=== PATIENT | female | born 1960 | race Caucasian/White ===

== ENCOUNTER 2020-05-02 17:53 | Outpatient (REF) | payer OTHER, SELFPAY ==
[2020-05-05 21:24] LABS: COVID-19 RT-PCR Result NEGATIVE (Negative)
== END 2020-05-02 18:13 ==
LOC: LBN 17:53
PROVIDERS: Visit Provider Nurse Practitioner Family
DX: J02.9 Acute pharyngitis, unspecified (principal)
CPT/HCPCS: U0003

== ENCOUNTER 2020-05-09 02:43 | Outpatient (CLI) | payer OTHER, SELFPAY ==
[2020-05-09 12:12] LABS: Abs Immature Grans 0.02 10^3/uL (0.0-0.06); Absolute Basophil Count 0.02 10^3/uL (0.0-0.2); Absolute Eosinophil Count 0.05 10^3/uL (0.0-0.7); Absolute Lymphocyte Count 1.65 10^3/uL (1.2-3.4); Absolute Monocyte Count 0.44 10^3/uL (0.1-0.8); Absolute Neutrophil Count 2.72 10^3/uL (1.2-6.7); Basophils % 0.4; HCT 43.5 % (36.0-46.0); HGB 14.4 g/dL (11.2-15.7); Immature Grans % 0.4; Lymphocytes % 33.7; MCH 28.2 pg (27.0-33.0); MCHC 33.1 % (32.0-36.0); MCV 85.3 fL (80-95); MPV 9.5 fL (8.0-11.0); Neutrophils % 55.5; Nucleated RBC 0 %; Platelet Count 234 10^3/uL (130-400); RDW 13.1 % (11.7-14.6); RDW-SD 40.4 fL
[2020-05-09 13:44] LABS: ALT 22 U/L (14-59); AST 15 U/L (15-37); Albumin 4.1 g/dL (3.4-5.0); Alkaline Phosphatase 92 U/L (46-116); Anion Gap 9.6 mmol/L (3-11); BUN 15 mg/dL (7-18); Bilirubin, Total 0.8 mg/dL (0.2-1.0); CO2 26.4 mmol/L (21.0-32.0); CREATININE 0.66 mg/dL (0.55-1.02); Calcium 9.3 mg/dL (8.5-10.1); Chloride 104 mmol/L (98-107); Glucose 99 mg/dL (74-106); Potassium 3.9 mmol/L (3.5-5.1); Sodium 140 mmol/L (136-145); TSH (W/Ref FT4) 1.12 uIU/mL (0.36-3.74); Total Protein 7.5 g/dL (6.4-8.2)
== END 2020-05-09 03:03 ==
PROVIDERS: Visit Provider Nurse Practitioner Family
DX: R53.83 Other fatigue (principal)
CPT/HCPCS: 36415; 80053; 84443; 85025

== ENCOUNTER 2020-05-18 01:06 | Outpatient (CLI) | payer OTHER, SELFPAY ==
--- NOTE | 2020-05-18 06:45 | DI.MAMMO_ITS ---
EXAM: MG MAMMO DIAGNOSTIC BI CLINICAL HISTORY: Bilateral breast pain, h/o RT neg breast biopsy,N64.4 TECHNIQUE: Mammograms were interpreted according to the usual protocol including computer analysis w [employer] CAD system, tomosynthesis and C-view imaging. COMPARISON: FINDINGS: The breasts are heterogeneously dense. No dominant mass or clumped microcalcification is identified in either breast. The current examination is compared with previous examination of November 2015 and the re has been no gross interval change in appearance in comparison with the prior study. IMPRESSION: No specific evidence of malignancy at this time. Routine screening examinations are suggested at yea rly intervals due to the family history of breast carcinoma. BI-RADS Category 1 - Negative Breast Density - Category C - Heterogeneously dense
== END 2020-05-18 01:26 ==
PROVIDERS: Visit Provider Nurse Practitioner Family
DX: N64.4 Mastodynia (principal)
CPT/HCPCS: 77062; 77066; G0279

== ENCOUNTER 2020-06-07 10:30 | Outpatient (REF) | payer OTHER, SELFPAY ==
--- NOTE | 2020-06-07 10:30 | PAPFT_PTH ---
PATIENT: Dionna Alvarado LOC: [facility] U#:[id number] AGE/SX: 59/F ROOM: RE06/07/[address]: Macey Crawford APRN : 1960 BED: DIS: 06/07/2020 SPEC #: [id number] RECD: 06/08/20 13:00 STATUS: LOTTIE SMITH #: [id number] SHEILA: 06/07/20 10:[address]: Macey Crawford [facility]PT[facility] Cytology RECD BY: Yisel Matos Tissues: 1 - CX/ENDOCX FOR PAP SMEARS Procedures: PAP THIN PREP/UVM Screening HPV DNA PROBE Comments: [id number]
== END 2020-06-07 10:50 ==
LOC: LBN 10:30
DX: Z12.4 Encounter for screening for malignant neoplasm of cervix (principal); Z11.51 Encounter for screening for human papillomavirus (HPV)
CPT/HCPCS: 88142; 87624

== ENCOUNTER 2020-09-01 03:08 | Outpatient (CLI) | payer OTHER, SELFPAY ==
[2020-09-01 11:05] LABS: ALT 21 U/L (14-59); AST 14 U/L (15-37); Alkaline Phosphatase 82 U/L (46-116); Amylase 97 U/L (25-115); BUN 15 mg/dL (7-18); Bilirubin, Total 1.4 mg/dL (0.2-1.0); CREATININE 0.6 mg/dL (0.55-1.02); Calcium 9.6 mg/dL (8.5-10.1); Chloride 107 mmol/L (98-107); Glucose 90 mg/dL (74-106); Lipase 147 U/L (73-393); Potassium 4.1 mmol/L (3.5-5.1); Sodium 145 mmol/L (136-145); Total Protein 7.2 g/dL (6.4-8.2)
== END 2020-09-01 03:09 | disposition home or self-care (01) ==
LOC: LBO 03:08
PROVIDERS: Visit Provider Nurse Practitioner Family
DX: R10.11 Right upper quadrant pain (principal)
CPT/HCPCS: 36415; 80053; 83690; 82150

== ENCOUNTER 2020-09-22 01:52 | Outpatient (CLI) | payer OTHER, SELFPAY ==
--- NOTE | 2020-09-22 08:00 | DI.MRI_ITS ---
Exam(s) MR ABDOMEN WO/W EXAM: MR ABDOMEN WO/W CLINICAL HISTORY: avascular hepatic lesion on US,r93.2. TECHNIQUE: Multiplanar multisequence MRI was performed. COMPARISON: US US ABDOMEN from 08/30/2020 FINDINGS: MR examination of abdomen was performed utilizing hemangioma protocol pre contrast and multiple phase postcontrast imaging. Recent ultrasound showed an indeterminate approximately 2 cm in diameter left hepatic lobe lesion. T his was avascular and hypoechoic with low-level internal echoes. On today's examination, T2 weighted imaging shows high signal 2 cm left lobe lesion with an appearanc e suggesting septated cyst. Two additional 7 millimeter in diameter high signal left hepatic lesions are also noted consistent with cyst. Following contrast administration, none of these lesions showe d enhancement on on multiphasic imaging obtained up to 15 minutes post injection. No significant splenic abnormality seen. Adrenals and kidneys are unremarkable. There appear to be a couple of tiny uncinate process pancreatic cysts. No biliary dilatation. Abdominal aorta is of no rmal diameter. No adenopathy identified. IMPRESSION: Left hepatic lobe lesion identified on ultrasound has a benign appearance by MR and is likely to repr esent a small septated hemorrhagic or proteinaceous cyst. No other significant findings. DATA REPOSITORY:
[2020-09-22] MEDS: Gadoterate meglumine 20 ML VIAL 17 ML IVP (15:04)
== END 2020-09-22 02:12 ==
PROVIDERS: Visit Provider Nurse Practitioner Family
DX: R93.2 Abnormal findings on diagnostic imaging of liver and biliary tract (principal); K76.89 Other specified diseases of liver
CPT/HCPCS: 74183

== ENCOUNTER 2021-05-23 00:08 | Outpatient (CLI) | payer OTHER, SELFPAY ==
--- NOTE | 2021-05-23 07:15 | DI.MAMMO_ITS ---
Exam(s) MAMMO SCREENING EXAM: MAMMO SCREENING CLINICAL HISTORY: screening,z12.39 TECHNIQUE: Bilateral full field digital CC and MLO mammographic images were obtained with 3D tomosyn thesis and utilizing computer aided detection (CAD). COMPARISON: Available for comparison. FINDINGS: Masses/Architectural Distortion: None seen. Microcalcifications: No suspicious pleomorphic-type are seen. Skin Thickening/Nipple Retraction: None. IMPRESSION: 1. No significant interval change with no specific features of malignancy noted. 2. Unless there is more urgent need, screening mammography is recommended, as per [place] guidelines. BI-RADS Category 1 - Negative Breast Density - Category C - Heterogeneously dense Breast density category C or D implies that the patient has dense breast tissue. Dense breast tissue is very common and is not abnormal but dense breast tissue can make it harder to find cancer on a ma mmogram. Also, dense breast tissue may increase their breast cancer risk. This information about the result of the mammogram report was provided to the patient to raise their awareness. Use this report when you speak with the patient about their risks for breast cancer, which includes their family hist ory. At that time, you may recommend for more screening tests (Ultrasound or MRI) as they might be us eful based on their risk. A negative radiographic report should not delay biopsy if a dominant or clinically suspicious mass is present. Up to ten percent of cancers are not identified on mammography. A negative report may reinforce clinical impression. Adenosis and dense breasts may obscure an underlying neoplasm. False positive reports average 6 to 10%. Patient will receive a letter notifying them of these results.
== END 2021-05-23 00:28 ==
DX: Z12.31 Encounter for screening mammogram for malignant neoplasm of breast (principal)
CPT/HCPCS: 77063; 77067

== ENCOUNTER 2021-06-01 04:15 | Outpatient (CLI) | payer OTHER, SELFPAY ==
[2021-06-01 10:34] LABS: ALT 23 U/L (14-59); AST 17 U/L (15-37); Albumin 3.9 g/dL (3.4-5.0); Alkaline Phosphatase 88 U/L (46-116); BUN 16 mg/dL (7-18); CREATININE 0.5 mg/dL (0.55-1.02); Calculated LDL 143 mg/dL (<100); Chloride 104 mmol/L (98-107); Cholesterol 242 mg/dL (<200); Glucose 85 mg/dL (74-106); HDL Cholesterol 86 mg/dL (40-60); Potassium 4.5 mmol/L (3.5-5.1); Sodium 140 mmol/L (136-145); TSH (W/Ref FT4) 1.12 uIU/mL (0.36-3.74); Total Protein 7.1 g/dL (6.4-8.2); Triglyceride 69 mg/dL (<150)
== END 2021-06-01 04:16 | disposition home or self-care (01) ==
LOC: LBO 04:15
DX: E04.2 Nontoxic multinodular goiter (principal); I10 Essential (primary) hypertension; Z00.00 Encounter for general adult medical examination without abnormal findings; Z13.220 Encounter for screening for lipoid disorders
CPT/HCPCS: 36415; 80053; 80061; 84443

== ENCOUNTER 2021-06-13 19:29 | Outpatient (REF) | payer OTHER, SELFPAY ==
[2021-06-13 20:32] LABS: Bilirubin Negative (Negative); Blood Negative (Negative); Clarity Turbid (Clear); Glucose Negative (Negative); Ketones 15 mg/dL (Negative); Leukocyte Esterase Negative (Negative); Nitrite Negative (Negative); Specific Gravity >= 1.030 (1.005-1.025); Urobilinogen 0.2 EU/dL (Up TO 0.2); pH 5.5 (5-8)
== END 2021-06-13 19:30 | disposition home or self-care (01) ==
LOC: LBN 19:29
DX: M54.50 Low back pain, unspecified (principal)
CPT/HCPCS: 81003

== ENCOUNTER 2022-03-15 03:50 | Outpatient (CLI) | payer OTHER, SELFPAY ==
[2022-03-15 11:26] LABS: Abs Immature Grans 0.01 10^3/uL (0.0-0.06); Absolute Basophil Count 0.02 10^3/uL (0.0-0.2); Absolute Eosinophil Count 0.04 10^3/uL (0.0-0.7); Absolute Lymphocyte Count 1.71 10^3/uL (1.2-3.4); Absolute Neutrophil Count 2.81 10^3/uL (1.2-6.7); Basophils % 0.4; Eosinophils % 0.8; HCT 43.8 % (36.0-46.0); HGB 14.1 g/dL (11.2-15.7); Immature Grans % 0.2; Lymphocytes % 34.3; MCH 28.1 pg (27.0-33.0); MCHC 32.2 % (32.0-36.0); MCV 87 fL (80-95); MPV 9.6 fL (8.0-11.0); Neutrophils % 56.3; Platelet Count 222 10^3/uL (130-400); RBC 5.01 10^6/uL (3.93-5.22); RDW-SD 41.9 fL; WBC 4.99 10^3/uL (4.4-10.8)
[2022-03-15 11:47] LABS: ALT 27 U/L (14-59); AST 22 U/L (15-37); Albumin 4.1 g/dL (3.4-5.0); Alkaline Phosphatase 92 U/L (46-116); Anion Gap 5.7 mmol/L (3-11); BUN 14 mg/dL (7-18); Bilirubin, Total 1.5 mg/dL (0.2-1.0); CO2 29.3 mmol/L (21.0-32.0); CREATININE 0.7 mg/dL (0.55-1.02); Calcium 9.2 mg/dL (8.5-10.1); Chloride 106 mmol/L (98-107); Estimated GFR 99.57 (mL/min/1.73m2); Glucose 92 mg/dL (74-106); Potassium 4.5 mmol/L (3.5-5.1); Sodium 141 mmol/L (136-145); Total Protein 7.7 g/dL (6.4-8.2)
[2022-03-16 12:57] LABS: EBV EA IgG Negative (Negative)
== END 2022-03-15 03:51 | disposition home or self-care (01) ==
LOC: LBO 03:51
PROVIDERS: Visit Provider Physician Assistant
DX: R10.9 Unspecified abdominal pain (principal)
CPT/HCPCS: 36415; 80053; 86663; 85025

== ENCOUNTER 2022-05-25 00:12 | Outpatient (CLI) | payer OTHER, SELFPAY ==
--- NOTE | 2022-05-25 08:00 | DI.MAMMO_ITS ---
Exam(s) MAMMO SCREENING EXAM: MAMMO SCREENING CLINICAL HISTORY: screening,Z12.39 TECHNIQUE: Mammograms were interpreted according to the usual protocol including computer analysis w [employer] CAD system, tomosynthesis and C-view imaging. COMPARISON: 2015 through 2021 FINDINGS: The breasts are composed of heterogeneously dense fibroglandular densities, Breast Density category C . No suspicious masses or suspicious microcalcifications are seen. No skin thickening or abnormal axillary lymph nodes are seen. There has been no significant change from prior exams. IMPRESSION: BI-RADS Category 1, Negative mammogram. Yearly screening mammography is recommended. Breast Density Category C, heterogeneously Dense. The mammogram demonstrates the patient's breast tissue is dense. Dense breast tissue is very common a nd is not abnormal but dense breast tissue can make it harder to find cancer on a mammogram. Also, de nse breast tissue may increase breast cancer risk. This information about the result of the mammogram report was provided to the patient to raise their awareness. Use this report when you speak with the patient about their risks for breast cancer, which includes their family history. At that time, you may recommend additional screening tests (Ultrasound or MRI) as they might be useful based on their r isk. A negative radiographic report should not delay biopsy if a dominant or clinically suspicious mass is present. Up to ten percent of cancers are not identified on mammography. A negative report may reinforce clinical impression. Adenosis and dense breasts may obscure an underlying neoplasm. False positive reports average 6 to 10%.
== END 2022-05-25 00:32 ==
LOC: DI 00:12
PROVIDERS: PCP Nurse Practitioner Family
DX: Z12.31 Encounter for screening mammogram for malignant neoplasm of breast (principal)
CPT/HCPCS: 77063; 77067

== ENCOUNTER → 2023-05-29 01:01 | Outpatient (CLI) | payer OTHER, SELFPAY ==
--- NOTE | 2023-05-29 07:45 | DI.MAMMO_ITS ---
Exam(s) MAMMO SCREENING EXAM: MAMMO SCREENING CLINICAL HISTORY: screening,Z12.39 TECHNIQUE: Bilateral full field digital CC and MLO mammographic images were obtained with 3D tomosyn thesis and utilizing computer aided detection (CAD). COMPARISON: Available for comparison. FINDINGS: Masses/Architectural Distortion: None seen. Microcalcifications: No suspicious pleomorphic-type are seen. Skin Thickening/Nipple Retraction: None. IMPRESSION: 1. No significant interval change with no specific features of malignancy noted. 2. Unless there is more urgent need, screening mammography is recommended, as per [employer] guidelines. BI-RADS Category 1 - Negative Breast Density - Category C - Heterogeneously dense Breast density category C or D implies that the patient has dense breast tissue. Dense breast tissue is very common and is not abnormal but dense breast tissue can make it harder to find cancer on a ma mmogram. Also, dense breast tissue may increase their breast cancer risk. This information about the result of the mammogram report was provided to the patient to raise their awareness. Use this report when you speak with the patient about their risks for breast cancer, which includes their family hist ory. At that time, you may recommend for more screening tests (Ultrasound or MRI) as they might be us eful based on their risk. A negative radiographic report should not delay biopsy if a dominant or clinically suspicious mass is present. Up to ten percent of cancers are not identified on mammography. A negative report may reinforce clinical impression. Adenosis and dense breasts may obscure an underlying neoplasm. False positive reports average 6 to 10%. Patient will receive a letter notifying them of these results.
== END ==
PROVIDERS: PCP Nurse Practitioner Family; Visit Provider Nurse Practitioner Family
DX: Z12.31 Encounter for screening mammogram for malignant neoplasm of breast (principal)
CPT/HCPCS: 77063; 77067

== ENCOUNTER 2023-07-29 12:00 | Outpatient (CLI) | payer OTHER, SELFPAY ==
--- NOTE | 2023-07-29 12:00 | RT.EKG_ITS ---
APPROVED REPORT Exam: Resting ECG Reason for Exam: annual exam Patient Location: O HR:91 bpm ECG Measurements Heart Rate 91 AXIS FL 192 P 60 QRSd 93 QRS 16 QT 379 T 0 QTc 467 Conclusion Sinus rhythm...normal P axis, V-rate 50- 99 RSR' in V1 or V2, Baseline wander in lead(s) V4,V5,V6
== END 2023-07-29 12:01 | disposition home or self-care (01) ==
LOC: DI.CM 12:01
PROVIDERS: PCP Nurse Practitioner Family; Visit Provider Nurse Practitioner Family
DX: R07.9 Chest pain, unspecified (principal)
CPT/HCPCS: 93010

== ENCOUNTER 2023-09-18 19:15 | Outpatient (REF) | payer OTHER, SELFPAY | END 2023-09-18 19:16 | disposition home or self-care (01) | LOC: NCHCN 19:15 | PROVIDERS: PCP Nurse Practitioner Family; Visit Provider Physician Assistant Medical | DX: J02.9 Acute pharyngitis, unspecified (principal) | CPT/HCPCS: 87070 ==

== ENCOUNTER 2024-05-25 14:49 | Outpatient (REF) | payer OTHER, SELFPAY | END 2024-05-25 14:50 | disposition home or self-care (01) | LOC: LBN 14:49 | PROVIDERS: PCP Nurse Practitioner Family; Visit Provider Nurse Practitioner Family | DX: J02.9 Acute pharyngitis, unspecified (principal) | CPT/HCPCS: 87070 ==

== ENCOUNTER 2024-06-01 02:04 | Outpatient (CLI) | payer OTHER, SELFPAY ==
--- NOTE | 2024-06-01 07:00 | DI.MAMMO_ITS ---
Exam(s) MAMMO SCREENING EXAM: MAMMO SCREENING CLINICAL HISTORY: screening,z12.39 TECHNIQUE: Mammograms were interpreted according to the usual protocol including computer analysis w [employer] CAD system, tomosynthesis and C-view imaging. COMPARISON: 2015 through 2023 FINDINGS: The breasts are composed of heterogeneously dense fibroglandular densities, Breast Density category C . No suspicious masses or suspicious microcalcifications are seen. No skin thickening or abnormal axillary lymph nodes are seen. There has been no significant change from prior exams. IMPRESSION: BI-RADS Category 1, Negative mammogram. Yearly screening mammography is recommended. Breast Density Category C, heterogeneously Dense. The mammogram demonstrates the patient's breast tissue is dense. Dense breast tissue is very common a nd is not abnormal but dense breast tissue can make it harder to find cancer on a mammogram. Also, de nse breast tissue may increase breast cancer risk. This information about the result of the mammogram report was provided to the patient to raise their awareness. Use this report when you speak with the patient about their risks for breast cancer, which includes their family history. At that time, you may recommend additional screening tests (Ultrasound or MRI) as they might be useful based on their r isk. A negative radiographic report should not delay biopsy if a dominant or clinically suspicious mass is present. Up to ten percent of cancers are not identified on mammography. A negative report may reinforce clinical impression. Adenosis and dense breasts may obscure an underlying neoplasm. False positive reports average 6 to 10%.
== END 2024-06-01 02:24 ==
LOC: DI 02:04
PROVIDERS: PCP Nurse Practitioner Family; Visit Provider Nurse Practitioner Family
DX: Z12.31 Encounter for screening mammogram for malignant neoplasm of breast (principal); R92.333 Mammographic heterogeneous density, bilateral breasts
CPT/HCPCS: 77063; 77067

== ENCOUNTER 2024-07-29 13:04 | Outpatient (REF) | payer OTHER, SELFPAY ==
[2024-07-29 13:54] LABS: HCT 43.7 % (36.0-46.0); HGB 14.2 g/dL (11.2-15.7); MCHC 32.5 % (32.0-36.0); MCV 86 fL (80-95); Platelet Count 233 10^3/uL (130-400); RBC 5.07 10^6/uL (3.93-5.22); RDW 13.3 % (11.7-14.6); RDW-SD 41.9 fL; WBC 5.55 10^3/uL (4.4-10.8)
[2024-07-29 14:35] LABS: ALT 19 U/L (14-59); AST 16 U/L (15-37); Albumin 4.1 g/dL (3.4-5.0); Alkaline Phosphatase 109 U/L (46-116); Anion Gap 9.5 mmol/L (3-11); BUN 15 mg/dL (7-18); Bilirubin, Total 1.3 mg/dL (0.2-1.0); CO2 25.5 mmol/L (21.0-32.0); CREATININE 0.7 mg/dL (0.55-1.02); Calcium 9.4 mg/dL (8.5-10.1); Calculated LDL 142 mg/dL (<100); Chloride 107 mmol/L (98-107); Cholesterol 244 mg/dL (<200); Estimated GFR 98.34 (mL/min/1.73m2); Glucose 88 mg/dL (74-106); HDL Cholesterol 92 mg/dL (>or=50); Potassium 4.1 mmol/L (3.5-5.1); Sodium 142 mmol/L (136-145); Total Protein 7.2 g/dL (6.4-8.2); Triglyceride 52 mg/dL (<150); Vitamin D 25 Total 26 ng/mL (30-100)
[2024-07-30 09:30] LABS: HBs Antibody, Quant 3.4 mIU/mL (See Note); Hep B Surface Ab Negative (See Note); Hepatitis B Core Antibody Negative (Negative); Hepatitis B Surface Antigen Negative (Negative)
[2024-07-30 09:46] LABS: Hepatitis C Ab w Rflx HCV PCR Negative (Negative)
[2024-07-30 09:56] LABS: HIV-1/2 Ag & Ab Screen Negative (Negative)
== END 2024-07-29 13:05 | disposition home or self-care (01) ==
LOC: LBN 13:04
PROVIDERS: PCP Nurse Practitioner Family; Visit Provider Nurse Practitioner Family
DX: K21.00 Gastro-esophageal reflux disease with esophagitis, without bleeding (principal); Z11.59 Encounter for screening for other viral diseases; E55.9 Vitamin D deficiency, unspecified; Z13.220 Encounter for screening for lipoid disorders; Z11.4 Encounter for screening for human immunodeficiency virus [HIV]
CPT/HCPCS: 80053; 80061; 82306; 85027; 86704; 86706; 86803; 87340; 87389

== ENCOUNTER 2024-09-01 15:51 | Outpatient (REF) | payer OTHER, SELFPAY ==
--- NOTE | 2024-09-01 14:00 | SKI_PTH ---
PATIENT: Dionna Alvarado LOC: [facility] U#:[id number] AGE/SX: 63/F ROOM: RE09/01/[address]: Yosvany Keyes DNP : 1960 BED: DIS: 09/01/2024 SPEC #: [id number] RECD: 09/02/24 12:30 STATUS: LOTTIE SMITH #: [id number] SHEILA: 09/01/24 14:[address]: Yosvany Medel DEPT: Surgical Specimen RECD BY: Yisel Matos Tissues: 1 - SKIN BIOPSY(SHAVE/PUNCH) 2 - SKIN BIOPSY(SHAVE/PUNCH) 3 - SKIN BIOPSY(SHAVE/PUNCH) 4 - SKIN BIOPSY(SHAVE/PUNCH) Procedures: SKIN LEVEL 4 Comments: [id number]
== END 2024-09-01 15:52 | disposition home or self-care (01) ==
LOC: LBN 15:51
PROVIDERS: PCP Nurse Practitioner Family; Visit Provider Nurse Practitioner Family
DX: D22.9 Melanocytic nevi, unspecified (principal)
CPT/HCPCS: 88305